=== PATIENT | male | born 1970 | race Caucasian/White ===

== ENCOUNTER 2019-09-30 01:53 | Emergency (ER) | payer MEDICAID ==
[~2019-09-30] VITALS: Ht 190.5 cm; Wt 81.6 kg
[2019-09-30 02:16] VITALS: BP_SYST 134
--- NOTE | 2019-09-30 02:34 | NUR ---
Patient to ER bed 02 to gown for evaluation. Side rails up. Report given to KAVYA Varela
--- NOTE | 2019-09-30 02:40 | NUR ---
ER Dr. Ryan at bedside examining patient.
--- NOTE | 2019-09-30 02:42 | NUR ---
pt c/o of right eye abscess that is swollen, red, and tender to the touch. pt went to [place] two days ago and was diagnosed with a "clogged eye duct". pt was prescribed keflex and norco and started taking them two days ago. pt denies n/v/fever/cough/sob.
[2019-09-30] MEDS ORDERED: LIDOCAINE 1% 10 MG/ML, 20 ML MDV INJ ONE (02:45)
--- NOTE | 2019-09-30 02:50 | NUR ---
I&D Procedure done by Dr Ryan to right eye using sterile technique. Lidocaine 1% used. Wound packed with nothing. 10 cc of pus and 10cc amt of bleeding noted. Wound care discussed w/ patient. Pt tolerated procedure well.
--- NOTE | 2019-09-30 03:00 | NUR ---
wound dressed with non-adherent dressing with tegaderm applied over per md request.
[2019-09-30] MEDS ORDERED: LIDOCAINE 1%, 20 ML MDV 20 ML ONE (03:03)
[2019-09-30 03:17] VITALS: BP_SYST 128
--- NOTE | 2019-09-30 03:17 | NUR ---
Patient given written and verbal discharge instructions and verbalizes understanding. ER MD discussed with patient the results and treatment provided. Patient in stable condition. ID arm band removed. Rx of bactrim and eye drops given. Patient educated on pain management and to follow up with PMD. Pain Scale 3/10. Opportunity for questions provided and answered. Medication side effect fact sheet provided.
== END 2019-09-30 03:17 | disposition home or self-care (01) ==
LOC: SED 01:53
DX: H00.032 Abscess of right lower eyelid (principal); R03.0 Elevated blood-pressure reading, without diagnosis of hypertension; F17.200 Nicotine dependence, unspecified, uncomplicated
CPT/HCPCS: 10060; 99283; J2001

== ENCOUNTER 2020-01-20 18:58 | Emergency (ER) | payer MEDICAID ==
[~2020-01-20] VITALS: Ht 190.5 cm; Wt 81.6 kg
[2020-01-20 19:05] VITALS: BP_SYST 148
--- NOTE | 2020-01-20 19:59 | NUR ---
Patient to ER bed 1 to gown for evaluation. Side rails up. Report given to INDIGO HOFF.
--- NOTE | 2020-01-20 20:05 | NUR ---
ER DR. SAHNI AT THE BEDSIDE EVALUATING PT
--- NOTE | 2020-01-20 20:07 | NUR ---
PT PRESENTS FROM HOME WITH RIGHT EYE ABSCESS NEAR TEAR DUCT THAT HE HAS HAD CHRONICALLY FOR ABOUT 2 YEARS OFF AND ON. PT HAS APPOINTMENT WITH [facility] TOMORROW BUT IS HAVING EYE PAIN WITH HEADACHE TONIGHT. AAOX4, V/S STABLE
[2020-01-20] MEDS ORDERED: LIDOCAINE/EPI 1% 1:100000 20 ML VIAL INJ ONE ×2 (20:15→20:34)
--- NOTE | 2020-01-20 20:30 | NUR ---
DR SAHNI AT THE BEDSIDE FOR I&D OF ABSCESS AT ANTERIOR CORNER OF EYE. PT TOLERATED WELL. CLEANSED WITH BETADINE AND STERILE WATER. GAUZE AND PAPER TAPE APPLIED TO AREA. PT TOLERATED WELL
[2020-01-20] MEDS ORDERED: KETOROLAC TROMETHAMINE 60 MG/2 ML VIAL IM ONE (20:45)
[2020-01-20 21:27] VITALS: BP_SYST 148
--- NOTE | 2020-01-20 21:29 | NUR ---
Patient given written and verbal discharge instructions and verbalizes understanding. ER MD discussed with patient the results and treatment provided. Patient in stable condition. ID arm band removed. Rx of NAPROSYN AND KEFLEX given. Patient educated on pain management and to follow up with PMD. Pain Scale 0/10. Opportunity for questions provided and answered. Medication side effect fact sheet provided.
== END 2020-01-20 21:27 | disposition home or self-care (01) ==
LOC: SED 18:58
DX: H00.032 Abscess of right lower eyelid (principal); H61.301 Acquired stenosis of right external ear canal, unspecified
CPT/HCPCS: 67700; 96372; 99284; J1885

== ENCOUNTER 2020-04-15 11:36 | Emergency (ER) | payer MEDICAID ==
[~2020-04-15] VITALS: Ht 190.5 cm; Wt 81.6 kg
[2020-04-15 11:36] VITALS: BP_SYST 104
== END 2020-04-15 11:54 | disposition home or self-care (01) ==
LOC: SED 11:36
DX: H04.131 Lacrimal cyst, right lacrimal gland (principal)
CPT/HCPCS: 99281